=== PATIENT | female | born 1970 | race Caucasian/White ===

== ENCOUNTER 2016-11-13 12:22 | Inpatient (IN) | payer OTHER ==
[~2016-11-13] VITALS: Ht 170.2 cm; Wt 88.5 kg
[2016-11-13] MEDS ORDERED: ELAVIL25 MG PO (19:00)
[2016-11-13] MEDS ORDERED: CYMBALTA60 MG PO (19:02)
[2016-11-13] MEDS ORDERED: FLEXERIL10 MG PO (19:02)
[2016-11-13] MEDS ORDERED: NEURONTIN300 MG PO (19:03)
== END 2016-11-18 12:40 | disposition short-term general hospital (02) | DRG 176 ==
LOC: ER 12:22 → IP 19:20
PROVIDERS: ADMIT Family Medicine
PROC: 3E0F7GC Introduction of Other Therapeutic Substance into Respiratory Tract, Via Natural or Artificial Opening (ICD-10-PCS; principal; 2016-11-13)
PROC: B246ZZZ Ultrasonography of Right and Left Heart (ICD-10-PCS; 2016-11-16)
DX: I26.99 Other pulmonary embolism without acute cor pulmonale (principal); J98.11 Atelectasis; R09.02 Hypoxemia; F41.9 Anxiety disorder, unspecified; F32.9 Major depressive disorder, single episode, unspecified; G54.0 Brachial plexus disorders
CPT/HCPCS: A9150; J1956; J8499; Q9967

== ENCOUNTER → 2016-12-08 | Outpatient (CLI) | payer OTHER ==
[~2016-12-08] MED LIST: CYMBALTA60 MG PO; ELAVIL25 MG PO; FLEXERIL10 MG PO; NEURONTIN300 MG PO
== END | disposition short-term general hospital (02) ==
LOC: CLPULM 05:46
DX: I26.99 Other pulmonary embolism without acute cor pulmonale (principal); J45.909 Unspecified asthma, uncomplicated; J98.4 Other disorders of lung; F41.9 Anxiety disorder, unspecified; F32.9 Major depressive disorder, single episode, unspecified; Z87.01 Personal history of pneumonia (recurrent); Z98.890 Other specified postprocedural states; Z87.891 Personal history of nicotine dependence

== ENCOUNTER → 2016-12-11 | Outpatient (CLI) | payer OTHER | END | disposition short-term general hospital (02) | LOC: CLCARD 08:34 | DX: R00.0 Tachycardia, unspecified (principal); I26.99 Other pulmonary embolism without acute cor pulmonale; J44.9 Chronic obstructive pulmonary disease, unspecified; E66.9 Obesity, unspecified ==

== ENCOUNTER → 2016-12-14 | Outpatient (CLI) | payer OTHER | END | disposition short-term general hospital (02) | LOC: CLNEUR 08:23 | DX: M54.12 Radiculopathy, cervical region (principal) ==

== ENCOUNTER → 2017-01-08 | Outpatient (CLI) | payer OTHER | END | disposition short-term general hospital (02) | LOC: CLCARD 08:59 | DX: I26.99 Other pulmonary embolism without acute cor pulmonale (principal); R07.9 Chest pain, unspecified; J44.9 Chronic obstructive pulmonary disease, unspecified; E66.9 Obesity, unspecified ==

== ENCOUNTER → 2017-01-25 | Outpatient (CLI) | payer OTHER | END | disposition short-term general hospital (02) | LOC: CLNEUR 09:05 | DX: M54.12 Radiculopathy, cervical region (principal) ==

== ENCOUNTER → 2017-04-26 | Outpatient (CLI) | payer OTHER | END | disposition short-term general hospital (02) | LOC: CLNEUR 07:55 | DX: M54.12 Radiculopathy, cervical region (principal) ==